=== PATIENT | female | born 1995 | race Caucasian/White ===

== ENCOUNTER 2025-03-19 20:41 | Emergency (ER) | payer OTHER, SELFPAY ==
[2025-03-19 20:50] VITALS: BP 129/87; PULSE 65; TEMP 36.4; O2SAT 100; BMI 31.5
--- NOTE | 2025-03-19 20:59 | XR_ITS ---
The [address] [address] Patient Name: JONY CARVALHO MRN: [id number] date: 1995 Sex: F Assigned Patient Location: ED.MAIN Current Patient Location: ED.MAIN Accession/Order Number: [id number] Exam Date: 03/19/2025 22:01 Report Date: 03/19/2025 22:02 At the request of: FRITZ FERRARO NP Procedure: XR chest 2V PA AND LATERAL CHEST: CLINICAL HISTORY: Sternal/epigastric pain COMPARISON: None FINDINGS: Unremarkable cardiomediastinal silhouette. No focal opacity, effusion or pneumothorax. XR/XR chest 2V IMPRESSION: NO ACUTE CARDIOPULMONARY ABNORMALITY. Impression dictated by: Alejandro Thomas M.D. 03/19/2025 10:02 PM Dictation Location: [place] [address] Electronically authenticated by: [id number] Y Date: 03/19/2025 22:02
--- NOTE | 2025-03-19 21:00 | ED.GENADUL1 ---
Documented by User: Anthony Nixon NP 03/19/25 21:48 HPI HPI - General Adult General Chief complaint: Chest Pain Stated complaint: CHEST/BACK PAIN Time Seen by Provider: 03/19/25 20:51 History of Present Illness HPI narrative: Patient is a 30-year-old female who presents to the emergency department today for evaluation concerns for chest and abdominal pain. She endorses her symptoms suddenly began this afternoon an hour after eating that she reports to be lower midsternal that radiates to the left upper quadrant and epigastric region. Mention she has had some mild discomfort to her right shoulder in addition. She reports a history of a cholecystectomy from 2021. She mentions at onset of symptoms she did have some nausea without vomiting. She mention she took some Zofran in addition to some vqos-[id number] antacid medications with some improvement in symptoms however she continues to still have some pain. No fevers. No cough/cold symptoms or shortness of breath. She denies any urinary symptoms or diarrhea. No back or flank pain. Related Data Home Medications ?Medication ?Instructions ?Recorded ?Confirmed cholecalciferol (vitamin D3) 50 03/19/25 mcg (2,000 unit) capsule escitalopram oxalate 10 mg tablet 10 mg PO DAILY 03/19/25 03/19/25 Previous Rx's ?Medication ?Instructions ?Recorded ondansetron 4 mg disintegrating 4 mg PO Q6H PRN nausea and 03/19/25 tablet vomiting #14 tabs pantoprazole 40 mg tablet,delayed 40 mg PO DAILY 4 weeks #28 tabs 03/19/25 release (Protonix) sucralfate 1 gram tablet 1 g PO Q6H 4 weeks #112 tabs 03/19/25 Allergies Allergy/AdvReac Type Severity Reaction Status Date / Time acetaminophen (From Percocet) Allergy Intermediate Hives Verified 03/19/25 21:06 oxycodone (From Percocet) Allergy Intermediate Hives Verified 03/19/25 21:06 promethazine (From Phenergan) Allergy Intermediate Hives Verified 03/19/25 21:06 ceftibuten (From Cedax) AdvReac Mild Rash Verified 03/19/25 21:06 Opioid HPI Opioid Management Most Recent Opioid Data: Last Pain Scale 6 Today, 20:50 Review of Systems ROS Status of ROS 10 or more systems reviewed and unremarkable except as noted in history and below PFSH PFSH Social History Little interest or pleasure in doing things: not at all Feeling down, depressed, or hopeless: not at all Exam Narrative Exam Narrative: Constituational: Awake/ alert, no apparent distress, well hydrated HENMT: normocephalic, external ears normal, moist oral mucous membranes and oropharynx normal Eyes: EOMI and conjunctivae normal Neck: ROM intact Chest: inspection of chest normal Respiratory: Normal respiratory effort, clear to auscultation bilaterally Cardio: regular rate and regular rhythm Chest: + Mild discomfort with palpation to lower midsternal region, chest is otherwise stable GI: + Mild discomfort with palpation to epigastric/LUQ without rebound, abdomen is otherwise soft to palpation and non-tender Back: nontender MSK: ROM intact, +NVI Skin: no rashes or petechiae Neuro: no focal deficits Psych: mental status grossly normal Constitutional Vital Signs, click to edit/add: Last Vital Signs Temp 97.6 F 03/19/25 20:50 Pulse 65 03/19/25 20:50 Resp 03/19/25 20:50 BP 129/87 03/19/25 20:50 Pulse Ox 100 03/19/25 21:51 O2 Del Method Room Air 03/19/25 21:51 Course Vital Signs Vital signs: Vital Signs Temperature 97.6 F 03/19/25 20:50 Pulse Rate 03/19/25 20:50 Respiratory Rate 03/19/25 20:50 Blood Pressure 129/87 03/19/25 20:50 Pulse Oximetry 100 03/19/25 20:50 Oxygen Delivery Method Room Air 03/19/25 20:50 Temperature 97.6 F 03/19/25 20:50 Pulse Rate 03/19/25 20:50 Respiratory Rate 03/19/25 20:50 Blood Pressure 129/87 03/19/25 20:50 Pulse Oximetry 100 03/19/25 21:51 Oxygen Delivery Method Room Air 03/19/25 21:51 Medical Decision Making [facility] Narrative Medical decision making narrative: Patient is a well-appearing 30-year-old female who presented to the emergency department today for evaluation concerns for lower midsternal chest discomfort and epigastric pain that wraps around to the left upper quadrant. Initial examination vital signs overall stable. No acute abdominal findings on exam. She does not appear to be exhibiting any ischemic symptoms and does appear euvolemic on exam. EKG without acute changes. Patient to receive supportive measures of Toradol, Zofran, and IV fluids. Care endorsed to oncoming provider Dr. Edward adam to follow-up on pending labs and image results and further determine disposition of patient. Medical Records Medical records reviewed: Yes I reviewed the patient's medical records Lab Data Lab results reviewed: Yes I reviewed the patient's lab results Labs: Lab Results 03/19/25 03/19/25 Range/Units 21:30 21:35 WBC 9.0 (4.0-11.0) 10^3/uL RBC 4.38 (4.20-5.40) 10^6/uL Hgb 12.4 (12.0-16.0) g/dL Hct 37.7 (36.0-48.0) % MCV 86.1 (81.0-99.0) fL MCH 28.3 (26.7-34.0) pg MCHC 32.9 (29.9-35.2) g/dL RDW 13.7 (11.0-15.0) % Plt Count 293 (150-450) 10^3/uL MPV 10.4 (9.5-13.5) fL Neut % (Auto) 55.3 (43.0-75.0) % Lymph % (Auto) 38.7 (20.5-60.0) % [place] % (Auto) 4.8 (1.7-12.0) % Eos % (Auto) 0.9 (0.9-7.0) % Baso % (Auto) 0.2 (0.2-2.0) % Neut # (Auto) 5.0 (1.4-6.5) 10^3/uL Lymph # (Auto) 3.5 (1.2-3.8) 10^3/uL [place] # (Auto) 0.4 (0.3-0.8) 10^3/uL Eos # (Auto) 0.1 (0.0-0.7) 10^3/uL Baso # (Auto) 0.0 (0.0-0.1) 10^3/uL Abs Immat Gran (auto) 0.01 (0.00-0.03) 10^3/uL Imm/Tot Granulo (auto) 0.1 (0.0-0.5) % Sodium 138 (136-145) mmol/L Potassium 3.6 (3.5-5.1) mmol/L Chloride 103 (98-107) mmol/L Carbon Dioxide 27.1 (21.0-32.0) mmol/L Anion Gap 11.5 BUN 16.0 (7.0-18.0) mg/dL Creatinine 0.93 (0.55-1.02) mg/dL Est GFR ( Amer) >60 (>=60 mL/min/1.73m^2) Est GFR (Non-Af Amer) >60 (>=60 mL/min/1.73m^2) BUN/Creatinine Ratio 17.2 Glucose 89 (74-106) mg/dL Calcium 9.5 (8.5-10.1) mg/dL Total Bilirubin 0.3 (0.2-1.0) mg/dL AST 20 (15-37) U/L ALT 24 (14-59) U/L Alkaline Phosphatase 70 (46-116) U/L Troponin I High Sens <4.0 L (4.0-51.3) pg/mL Total Protein 7.2 (6.4-8.2) g/dL Albumin 3.4 (3.4-5.0) g/dL Globulin 3.8 g/dL Albumin/Globulin Ratio 0.9 Lipase 21.0 (16.0-77.0) U/L Urine Color Lt. yellow (YELLOW) Urine Clarity Clear (CLEAR) Urine pH 6.0 (5.0-9.0) Ur Specific [place] 1.010 (1.005-1.025) Urine Protein Negative (NEG/TRACE) mg/dL Urine Glucose (UA) Negative (NEGATIVE) mg/dL Urine Ketones Negative (NEGATIVE) mg/dL Urine Occult Blood Large A (NEGATIVE) Urine Nitrite Negative (NEGATIVE) Urine Bilirubin Negative (NEGATIVE) Urine Urobilinogen 0.2 (0.2-1.0) EU/dL Ur Leukocyte Esterase Trace A (NEGATIVE) Urine RBC >100 A (0-2) #/HPF Urine WBC 0-2 A (NONE SEEN) #/HPF Ur Squamous Epith Cells Few A (NONE/RARE) #/LPF Urine Crystals None seen (None Seen) #/HPF Urine Bacteria None seen (NONE SEEN) #/HPF Urine Casts None seen (NONE SEEN) #/LPF Urine Mucus None seen (NONE SEEN) Ur Culture Indicated? No Imaging Data Chest x-ray: Radiologist's impression: ITS Impressions Chest X-Ray 03/19/25 20:59 IMPRESSION: NO ACUTE CARDIOPULMONARY ABNORMALITY. Impression dictated by: Alejandro Thomas M.D. 03/19/2025 10:02 PM Dictation Location: [employer] Electronically authenticated by: [id number] Y Date: 03/19/2025 22:02 ECG Data Attestation: I personally reviewed and interpreted this ECG as follows: (Sinus bradycardia with HR 57, no acute/ischemic changes) Discharge Plan Discharge Chief Complaint: Chest Pain Clinical Impression: Atypical chest pain, Chest pain due to GERD Patient Disposition: Home, Self-Care Time of Disposition Decision: 23:44 Condition: Good Mode of Transportation: Private Vehicle Prescriptions / Home Meds: New ondansetron 4 mg tablet,disintegrating 4 mg PO Q6H PRN (Reason: nausea and vomiting) Qty: 14 0RF sucralfate 1 gram tablet 1 g PO Q6H 28 Days Qty: 112 0RF pantoprazole [Protonix] 40 mg tablet,delayed release (DR/EC) 40 mg PO DAILY 28 Days Qty: 28 0RF No Action escitalopram oxalate 10 mg tablet 10 mg PO DAILY cholecalciferol (vitamin D3) 50 mcg (2,000 unit) capsule Print Language: Stateless Instructions: GERD (Gastroesophageal Reflux Disease) (ED), Indigestion (ED) Referrals: INOCENTE EUBANKS [Primary Care Provider, Family Practice] - 1 week Documented by User: Rosa Maria Vogel DO 03/19/25 23:50 HPI HPI - General Adult General Chief complaint: Chest Pain Stated complaint: CHEST/BACK PAIN Time Seen by Provider: 03/19/25 20:51 Related Data Home Medications ?Medication ?Instructions ?Recorded ?Confirmed cholecalciferol (vitamin D3) 50 03/19/25 mcg (2,000 unit) capsule escitalopram oxalate 10 mg tablet 10 mg PO DAILY 03/19/25 03/19/25 Previous Rx's ?Medication ?Instructions ?Recorded ondansetron 4 mg disintegrating 4 mg PO Q6H PRN nausea and 03/19/25 tablet vomiting #14 tabs pantoprazole 40 mg tablet,delayed 40 mg PO DAILY 4 weeks #28 tabs 03/19/25 release (Protonix) sucralfate 1 gram tablet 1 g PO Q6H 4 weeks #112 tabs 03/19/25 Allergies Allergy/AdvReac Type Severity Reaction Status Date / Time acetaminophen (From Percocet) Allergy Intermediate Hives Verified 03/19/25 21:06 oxycodone (From Percocet) Allergy Intermediate Hives Verified 03/19/25 21:06 promethazine (From Phenergan) Allergy Intermediate Hives Verified 03/19/25 21:06 ceftibuten (From Cedax) AdvReac Mild Rash Verified 03/19/25 21:06 Opioid HPI Opioid Management Most Recent Opioid Data: Last Pain Scale 6 Today, 20:50 PFSH PFSH Social History Little interest or pleasure in doing things: not at all Feeling down, depressed, or hopeless: not at all Exam Constitutional Vital Signs, click to edit/add: Last Vital Signs Temp 97.6 F 03/19/25 20:50 Pulse 65 03/19/25 20:50 Resp 19 03/19/25 20:50 BP 129/87 03/19/25 20:50 Pulse Ox 100 03/19/25 21:51 O2 Del Method Room Air 03/19/25 21:51 Course Vital Signs Vital signs: Vital Signs Temperature 97.6 F 03/19/25 20:50 Pulse Rate 65 03/19/25 20:50 Respiratory Rate 19 03/19/25 20:50 Blood Pressure 129/87 03/19/25 20:50 Pulse Oximetry 100 03/19/25 20:50 Oxygen Delivery Method Room Air 03/19/25 20:50 Temperature 97.6 F 03/19/25 20:50 Pulse Rate 65 03/19/25 20:50 Respiratory Rate 19 03/19/25 20:50 Blood Pressure 129/87 03/19/25 20:50 Pulse Oximetry 100 03/19/25 21:51 Oxygen Delivery Method Room Air 03/19/25 21:51 Medical Decision Making Lab Data Labs: Lab Results 03/19/25 03/19/25 Range/Units 21:30 21:35 WBC 9.0 (4.0-11.0) 10^3/uL RBC 4.38 (4.20-5.40) 10^6/uL Hgb 12.4 (12.0-16.0) g/dL Hct 37.7 (36.0-48.0) % MCV 86.1 (81.0-99.0) fL MCH 28.3 (26.7-34.0) pg MCHC 32.9 (29.9-35.2) g/dL RDW 13.7 (11.0-15.0) % Plt Count 293 (150-450) 10^3/uL MPV 10.4 (9.5-13.5) fL Neut % (Auto) 55.3 (43.0-75.0) % Lymph % (Auto) 38.7 (20.5-60.0) % [place] % (Auto) 4.8 (1.7-12.0) % Eos % (Auto) 0.9 (0.9-7.0) % Baso % (Auto) 0.2 (0.2-2.0) % Neut # (Auto) 5.0 (1.4-6.5) 10^3/uL Lymph # (Auto) 3.5 (1.2-3.8) 10^3/uL [place] # (Auto) 0.4 (0.3-0.8) 10^3/uL Eos # (Auto) 0.1 (0.0-0.7) 10^3/uL Baso # (Auto) 0.0 (0.0-0.1) 10^3/uL Abs Immat Gran (auto) 0.01 (0.00-0.03) 10^3/uL Imm/Tot Granulo (auto) 0.1 (0.0-0.5) % Sodium 138 (136-145) mmol/L Potassium 3.6 (3.5-5.1) mmol/L Chloride 103 (98-107) mmol/L Carbon Dioxide 27.1 (21.0-32.0) mmol/L Anion Gap 11.5 BUN 16.0 (7.0-18.0) mg/dL Creatinine 0.93 (0.55-1.02) mg/dL Est GFR ( Amer) >60 (>=60 mL/min/1.73m^2) Est GFR (Non-Af Amer) >60 (>=60 mL/min/1.73m^2) BUN/Creatinine Ratio 17.2 Glucose 89 (74-106) mg/dL Calcium 9.5 (8.5-10.1) mg/dL Total Bilirubin 0.3 (0.2-1.0) mg/dL AST 20 (15-37) U/L ALT 24 (14-59) U/L Alkaline Phosphatase 70 (46-116) U/L Troponin I High Sens <4.0 L (4.0-51.3) pg/mL Total Protein 7.2 (6.4-8.2) g/dL Albumin 3.4 (3.4-5.0) g/dL Globulin 3.8 g/dL Albumin/Globulin Ratio 0.9 Lipase 21.0 (16.0-77.0) U/L Urine Color Lt. yellow (YELLOW) Urine Clarity Clear (CLEAR) Urine pH 6.0 (5.0-9.0) Ur Specific [place] 1.010 (1.005-1.025) Urine Protein Negative (NEG/TRACE) mg/dL Urine Glucose (UA) Negative (NEGATIVE) mg/dL Urine Ketones Negative (NEGATIVE) mg/dL Urine Occult Blood Large A (NEGATIVE) Urine Nitrite Negative (NEGATIVE) Urine Bilirubin Negative (NEGATIVE) Urine Urobilinogen 0.2 (0.2-1.0) EU/dL Ur Leukocyte Esterase Trace A (NEGATIVE) Urine RBC >100 A (0-2) #/HPF Urine WBC 0-2 A (NONE SEEN) #/HPF Ur Squamous Epith Cells Few A (NONE/RARE) #/LPF Urine Crystals None seen (None Seen) #/HPF Urine Bacteria None seen (NONE SEEN) #/HPF Urine Casts None seen (NONE SEEN) #/LPF Urine Mucus None seen (NONE SEEN) Ur Culture Indicated? No Imaging Data Chest x-ray: Attestation: I have reviewed the pertinent imaging results. Radiologist's impression: ITS Impressions Chest X-Ray 03/19/25 20:59 IMPRESSION: NO ACUTE CARDIOPULMONARY ABNORMALITY. Impression dictated by: Alejandro Thomas M.D. 03/19/2025 10:02 PM Dictation Location: [place] [address] Electronically authenticated by: [id number] Y Date: 03/19/2025 22:02 Discharge Plan Discharge Chief Complaint: Chest Pain Clinical Impression: Atypical chest pain, Chest pain due to GERD Patient Disposition: Home, Self-Care Time of Disposition Decision: 23:44 Condition: Good Mode of Transportation: Private Vehicle Prescriptions / Home Meds: New ondansetron 4 mg tablet,disintegrating 4 mg PO Q6H PRN (Reason: nausea and vomiting) Qty: 14 0RF sucralfate 1 gram tablet 1 g PO Q6H 28 Days Qty: 112 0RF pantoprazole [Protonix] 40 mg tablet,delayed release (DR/EC) 40 mg PO DAILY 28 Days Qty: 28 0RF No Action escitalopram oxalate 10 mg tablet 10 mg PO DAILY cholecalciferol (vitamin D3) 50 mcg (2,000 unit) capsule Print Language: Stateless Instructions: GERD (Gastroesophageal Reflux Disease) (ED), Indigestion (ED) Referrals: INOCENTE EUBANKS [Primary Care Provider, Family Practice] - 1 week
[2025-03-19 21:05] VITALS: PULSE 57
--- NOTE | 2025-03-19 21:05 | ECG_ITS ---
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
[2025-03-19] MEDS: 0.9 % SODIUM CHLORIDE 1,000 ML 1000 ML IV (21:37)
[2025-03-19] MEDS: KETOROLAC TROMETHAMINE 30 MG/ML VIAL IVP (21:37)
[2025-03-19 21:44] LABS: Hematocrit 37.7 % (36.0-48.0); Hemoglobin 12.4 g/dL (12.0-16.0); Immature Granulocytes Abs Auto 0.01 10^3/uL (0.00-0.03); Immature Granulocytes Pct Auto 0.1 % (0.0-0.5); Lymphocytes Absolute Auto 3.5 10^3/uL (1.2-3.8); Mean Corpuscular HGB Conc 32.9 g/dL (29.9-35.2); Mean Corpuscular Hemoglobin 28.3 pg (26.7-34.0); Mean Corpuscular Volume 86.1 fL (81.0-99.0); Platelet Count 293 10^3/uL (150-450); Red Blood Count 4.38 10^6/uL (4.20-5.40); White Blood Count 9.0 10^3/uL (4.0-11.0)
[2025-03-19 21:51] VITALS: O2SAT 100
[2025-03-19 21:59] LABS: Alanine Aminotransferase 24 U/L (14-59); Albumin Globulin Ratio 0.9; Albumin Level 3.4 g/dL (3.4-5.0); Alkaline Phosphatase 70 U/L (46-116); Anion Gap 11.5; Aspartate Amino Transferase 20 U/L (15-37); Blood Urea Nitrogen 16.0 mg/dL (7.0-18.0); Calcium 9.5 mg/dL (8.5-10.1); Carbon Dioxide 27.1 mmol/L (21.0-32.0); Chloride 103 mmol/L (98-107); Estimated GFR (African America >60 (>=60 mL/min/1.73m^2); Estimated GFR (Non-African Ame >60 (>=60 mL/min/1.73m^2); Globulin 3.8 g/dL; Glucose 89 mg/dL (74-106); Potassium 3.6 mmol/L (3.5-5.1); Sodium 138 mmol/L (136-145); Total Protein 7.2 g/dL (6.4-8.2)
[2025-03-19 22:02] LABS: Lipase 21.0 U/L (16.0-77.0)
[2025-03-19 22:10] LABS: Glucose Urine UA NEGATIVE (NEGATIVE)
[2025-03-19 22:15] LABS: Cast Seen? NONE SEEN #/LPF (NONE SEEN); Crystals Seen? None Seen #/HPF (None Seen); Urine Culture Indicated NO
== END 2025-03-20 00:21 | disposition home or self-care (01) ==
PROVIDERS: Nurse Practitioner; Emergency Provider Emergency Medicine; PCP Internal Medicine
DX: R07.89 Other chest pain (principal); K21.9 Gastro-esophageal reflux disease without esophagitis; R10.84 Generalized abdominal pain; R10.13 Epigastric pain; M25.511 Pain in right shoulder; R11.0 Nausea; Z90.49 Acquired absence of other specified parts of digestive tract
CPT/HCPCS: 36415; 71046; 80053; 81001; 83690; 84484; 85025; 93005; 96374; 96375; 99285; J1885; J2405